=== PATIENT | male | born 1980 | race Caucasian/White ===

== ENCOUNTER 2018-10-25 12:16 | Emergency (ER) | payer OTHER ==
[2018-10-25 12:21] VITALS: BP 144/92
--- NOTE | 2018-10-25 13:10 | ED Physician Documentation ---
PD HPI OPHTHO - Stated complaint Stated Complaint: EYE PX - Chief complaint Chief Complaint: Heent - History obtained from History obtained from: Patient - History of Present Illness Timing - onset: How many days ago (3-4) Timing - duration: Days (3-4) Timing - details: Gradual onset, Still present Location: Right Quality / character: Burning Associated symptoms: Redness, Swelling, Matting, Photophobia (starting today). No: Discharge, FB sensation, Decreased vision Contributing factors: Recent URI (had nasal congestion and is having pressure feeling around and behind the eye.). No: Exposed to conjunctivitis, Blunt trauma, Wears contacts Similar symptoms before: Has not had sx before Recently seen: Not recently seen Review of Systems Constitutional: denies: Fever, Chills Eyes: reports: Photophobia, Irritation. denies: Loss of vision, Discharge (but has matting in the mornings) Ears: denies: Ear pain Nose: reports: Congestion, Sinus pressure / pain (around right eye and right frontal area) Throat: denies: Sore throat Respiratory: denies: Dyspnea, Cough Skin: denies: Rash, Lesions Neurologic: denies: Altered mental status PD PAST MEDICAL HISTORY - Past Medical History Cardiovascular: None Respiratory: None Neuro: None Endocrine/Autoimmune: None - Present Medications Home Medications: Ambulatory Orders Medication Instructions Recorded Confirmed Cephalexin [Keflex] 500 mg PO TID #15 capsule 10/25/18 Dexamethasone [Decadron] 4 mg PO DAILY #5 tablet 10/25/18 Sulfacetm Na/Prednisol AC 2 drops OP QID #5 ml 10/25/18 [Blephamide Eye Drops] - Allergies Allergies/Adverse Reactions: Allergies Allergy/AdvReac Type Severity Reaction Status Date / Time No Known Drug Allergies Allergy Verified 10/25/18 12:22 PD ED PE NORMAL - Vitals Vital signs reviewed: Yes - General General: Alert and oriented X 3, No acute distress, Well developed/nourished - HEENT HEENT: PERRL (with light sensitive to right eye. Anterior chamber without flare, appears clear. Posterior chamber and fundus are normal. There is hyperemia with conjunctival swelling/redness, slight crusting in right eye. IOP is 13. flourescein did not have any uptake. ), EOMI (without eye pain on movement. ), Moist mucous membranes, Pharynx benign - Neck Neck: Supple, no meningeal sign, No adenopathy Results - Vitals Vitals: Vital Signs - 24 hr 10/25/18 12:19 Temperature 36.7 C Heart Rate 78 Respiratory 16 Rate Blood Pressure 144/92 H O2 Saturation 100 Oxygen O2 Source Room air PD MEDICAL DECISION MAKING - ED course Complexity details: considered differential (redness and some matting right eye, without dye uptake. Has normal IOP. fundus is normal. Has symptoms of nasal congestion, recent URI, and pressure around/behind eye. Consider sinus infection. No general headache. ), d/w patient Departure - Departure Disposition: Home, Self Care Clinical Impression: Conjunctivitis, acute Qualifiers: Acute conjunctivitis type: bacterial Laterality: right Qualified Code(s): H10.31 - Unspecified acute conjunctivitis, right eye Sinusitis, acute, sphenoidal Qualifiers: Recurrence: non-recurrent Qualified Code(s): J01.30 - Acute sphenoidal sinusitis, unspecified Condition: Stable Record reviewed to determine appropriate education?: Yes Instructions: ED Conjunctivitis Nonspecific, ED Sinusitis Abx Tx Follow-Up: Andrea Del Rosario MD [Provider Admit Priv/Credential] - Prescriptions: Cephalexin [Keflex] 500 mg PO TID #15 capsule Dexamethasone [Decadron] 4 mg PO DAILY #5 tablet Sulfacetm Na/Prednisol AC [Blephamide Eye Drops] 2 drops OP QID #5 ml Comments: Use the antibiotic eyedrops 2 drops 4 times a day for the next 3-4 days. This may be just a viral inflammation of the eye though it is unusual to be the one- sided and had also consider the idea of a sinus infection around the eye given your other symptoms. So also use the anti-inflammatories and antibiotics orally. Tylenol or ibuprofen for fevers or pains. Recheck if the eye is not better over the next couple of days; I gave a phone number for client application support specialist here in [place]. Could follow-up with [facility]. Discharge Date/Time: 10/25/18 14:08
== END 2018-10-25 14:08 | disposition home or self-care (01) ==
LOC: ED 12:16
DX: H10.31 Unspecified acute conjunctivitis, right eye (principal); J01.30 Acute sphenoidal sinusitis, unspecified
CPT/HCPCS: 99283

== ENCOUNTER 2022-01-20 17:03 | Outpatient (CLI) | payer OTHER ==
--- NOTE | 2022-01-20 17:25 | XRAY Report ---
PROCEDURE: Chest 2 View X-Ray INDICATIONS: COUGH,FEVER TECHNIQUE: 2 view(s) of the chest. COMPARISON: None. FINDINGS: Surgical changes and devices: None. Lungs and pleura: No pleural effusions or pneumothorax. Lungs are clear. Mediastinum: Mediastinal contours are normal. Heart size is normal. Bones and chest wall: No suspicious bony abnormalities. Soft tissues appear unremarkable. IMPRESSION: No acute pulmonary process. Reviewed by: Veronica Abreu MD on 01/20/2022 4:24 PM [email or web address] Approved by: Veronica Abreu MD on 01/20/2022 4:24 PM [email or web address] Station ID: [id number]
== END 2022-01-20 17:04 | disposition home or self-care (01) ==
LOC: DI 17:03
PROVIDERS: ATTEND Internal Medicine
DX: R05.3 Chronic cough (principal); R50.9 Fever, unspecified